=== PATIENT | female | born 1990 | race Caucasian/White ===

== ENCOUNTER 2021-06-29 22:10 | Emergency (ER) | payer SELFPAY ==
[~2021-06-29] VITALS: Ht 154.9 cm; Wt 78.0 kg
[2021-06-30] MEDS ORDERED: ONDANSETRON 4MG ODT PO ONE
[2021-06-30 00:12] LABS: CLARITY URINE CLEAR (CLEAR); COLOR URINE YELLOW (YELLOW); KETONES URINE NEGATIVE (NEGATIVE); LEUKOCYTE ESTERASE URINE 1+ (NEGATIVE); NITRITE URINE NEGATIVE (NEGATIVE); OCCULT BLOOD URINE 3+ (NEGATIVE); PROTEIN URINE TRACE (NEGATIVE); SPECIFIC GRAVITY URINE 1.031 (1.005-1.030); UROBILINOGEN URINE 0.2 E.U./dL (0.2-1.0)
[2021-06-30 00:20] LABS: CHLORIDE 112 mEq/L (98-107)
[2021-06-30 00:22] LABS: BASOPHILS % 0.2 % (0.0-2.0); EOSINOPHILS % 1.3 % (0.0-5.0); HEMATOCRIT. 38.5 % (36.0-48.0); HEMOGLOBIN. 12.9 g/dL (12.0-16.0); LYMPHOCYTES % 22.5 % (20.0-50.0); MEAN CORPUSCULAR HEMOGLOBIN 27.9 pg (28.0-32.0); MEAN CORPUSCULAR VOLUME 83.4 fL (81.0-99.0); MEAN PLATELET VOLUME 8.2 fl (7.4-10.4); MONOCYTES % 4.7 % (2.0-8.0); NEUTROPHILS % 71.3 % (40.0-76.0); PLATELET 301 x1000/uL (130-400); RED BLOOD CELL COUNT 4.62 mill/uL (4.2-5.4); RED CELL DISTRIBUTION WIDTH 14.1 % (11.6-14.6)
[2021-06-30] MEDS ORDERED: NITR-87 MT (01:15)
[2021-06-30] MEDS ORDERED: NITROFURANTOIN 100MG M/M CAPSULE PO NR (01:15)
[2021-06-30] MEDS ORDERED: PHENAZOPYRIDINE HCL 100MG TABLET PO NR (01:15)
[2021-06-30] MEDS ORDERED: PHEN-815 MT (01:15)
[2021-06-30 01:27] VITALS: BP 128/77
[2021-06-30] MEDS ORDERED: KETOROLAC 15MG/ML VIAL IM ONE (01:30)
== END 2021-06-30 01:32 | disposition home or self-care (01) ==
LOC: ER 22:10
DX: N39.0 Urinary tract infection, site not specified (principal); N93.9 Abnormal uterine and vaginal bleeding, unspecified
CPT/HCPCS: 36415; 76830; 76856; 80053; 81003; 81025; 85025; 87086; 96372; 99284; J1885; Q0162